=== PATIENT | female | born 1955 | race Caucasian/White ===

== ENCOUNTER 2020-04-24 19:02 | Emergency (ER) | payer OTHER ==
[~2020-04-24] VITALS: Ht 162.6 cm; Wt 56.7 kg
--- NOTE | 2020-04-24 19:20 | NUR ---
TO ER BED 10 BIBPA FROM [facility] C/O RLQ ABDOMINAL PAIN X3 DAYS. SENT BY PMD FOR RAJESH. PT AAOX4 NO ACUTE DISTRESS NOTED, RESP EVEN AND UNLABORED. PENDING ER MD MORALES.
--- NOTE | 2020-04-24 19:35 | NUR ---
URINE SAMPLE COLLECTED AND SENT TO LAB.
--- NOTE | 2020-04-24 19:40 | NUR ---
STARTED SL 18G TO RFA, BLOOD DRAWN AND SENT TO LAB.
[2020-04-24 19:54] LABS: BASOPHILS # (AUTO) 0.1 /CMM (0.0-0.2); BASOPHILS % (AUTO) 0.9 % (0.0-2.0); EOSINOPHILS % (AUTO) 1.4 % (0.0-6.0); HEMATOCRIT 48 % (33-45); HEMOGLOBIN 15.4 g/dL (11.5-14.8); LYMPHOCYTES # (AUTO) 2.4 /CMM (0.8-4.8); LYMPHOCYTES % (AUTO) 16.2 % (20.0-44.0); MEAN CORPUSCULAR HGB CONC 32 g/dl (31.0-36.0); MEAN CORPUSCULAR VOLUME 96 fL (82-100); MONOCYTES # (AUTO) 0.9 /CMM (0.1-1.30); NEUTROPHILS # (AUTO) 11.1 /CMM (1.8-8.9); NEUTROPHILS % (AUTO) 75.5 % (43.0-81.0); PLATELET COUNT (AUTO) 291 /CMM (150-450); RED BLOOD CELL COUNT(AUTO) 4.97 MIL/uL (4.0-5.2); WHITE BLOOD COUNT (AUTO) 14.6 K/uL (4.3-11.0)
[2020-04-24 20:17] LABS: CALCIUM, SERUM 8.9 mg/dL (8.5-10.1); CREATININE 1.1 mg/dL (0.6-1.3); POTASSIUM 4.5 mmol/L (3.5-5.1)
[2020-04-24] MEDS ORDERED: IOHEXOL-300 100 ML VIAL IV ONE (20:33)
--- NOTE | 2020-04-24 20:41 | NUR ---
PT TRANSPORTED TO RADIOLOGY FOR CT ABD/PELVIS WITH IV CONTRAST.
[2020-04-24 20:53] LABS: ALBUMIN 3.2 g/dL (3.4-5.0); BILIRUBIN,DIRECT 0.1 mg/dL (0.0-0.2); BILIRUBIN,TOTAL 0.3 mg/dL (0.2-1.0); TOTAL PROTEIN, SERUM 8.2 g/dL (6.4-8.2)
[2020-04-24] MEDS ORDERED: INSULIN REGULAR, HUMAN 100 UNIT/ML 10 ML VIAL SQ ONE (21:30)
[2020-04-24 21:34] LABS: BILIRUBIN,URINE NEGATIVE (NEGATIVE); COLOR,URINE YELLOW (YELLOW); LEUKOCYTE ESTERASE ,URINE SMALL (NEGATIVE); NITRITE, URINE POSITIVE (NEGATIVE); PROTEIN,URINE NEGATIVE (NEGATIVE); UGLUCOSE >=1000 mg/dL (NEGATIVE); UROBILINOGEN,URINE 0.2 EU/dL (0.2)
[2020-04-24] MEDS ORDERED: INSULIN REGULAR, HUMAN 100 UNIT/ML 10 ML VIAL ONE (21:42)
--- NOTE | 2020-04-24 21:44 | NUR ---
[facility] called for higher level of care. Not accepting emtala transfers.
--- NOTE | 2020-04-24 21:49 | NUR ---
ER MD TALKING TO PT REGARDING CT RESULT AND POSSIBLE TRANSFER FOR HLOC.
--- NOTE | 2020-04-24 21:56 | NUR ---
RAPID COVID AND COVID PCR SWAB COLLECTED AND SENT TO LAB.
[2020-04-24 21:58] LABS: BACTERIA,URINE 3+ /HPF (None Seen); WBC,URINE 81-100 /HPF (0-3)
--- NOTE | 2020-04-24 22:04 | NUR ---
[facility] Transfer [facility] called for higher level of care. Facesheet and clinicals faxed to transfer center.
--- NOTE | 2020-04-24 22:12 | NUR ---
[facility] called for higher level of care. Facesheet and clinicals faxed.
--- NOTE | 2020-04-24 22:21 | NUR ---
[facility] transfer center called for higher level of care. No capacity.
--- NOTE | 2020-04-24 22:52 | NUR ---
Call from lab. Rapid covid negative.
--- NOTE | 2020-04-24 22:54 | NUR ---
HEIDE MERAZ TALKING TO [facility] REGARDING PT.
[2020-04-24] MEDS ORDERED: IV NS 0.9% 1,000 ML IV ONE (23:00)
--- NOTE | 2020-04-24 23:15 | NUR ---
PER REMEDIOS AT [facility] TRANSFER [facility] PT IS DECLINED FOR HLOC DUE TO [facility] IS AT CAPACITY.
[2020-04-24] MEDS ORDERED: CIPROFLOXACIN IV RTU 200 ML IV ONE (23:20)
[2020-04-24] MEDS: CIPROFLOXACIN IV RTU 400 MG in PREMIX 1 EA IV SCH (23:31)
--- NOTE | 2020-04-25 01:29 | NUR ---
PT RESTING QUIETLY, NO ACUTE DISTRESS NOTED, RESP EVEN AND UNLABORE. NO PAIN OR DISCOMFORT NOTED AT THIS TIME. CALL LIGHT WITHIN REACH. WILL CONTINUE TO MONITOR PT CLOSELY.
--- NOTE | 2020-04-25 02:34 | NUR ---
DIAPER CHANGED PER PT REQUEST. KEPT COMFORTABLE. DEENIS PAIN OR DISCOMFORT AT THIS TIME. CALL LIGHT WITHIN REACH. WILL CONTINUE TO MONITOR.
--- NOTE | 2020-04-25 07:15 | NUR ---
REPORT GIVEN TO AM SHIFT DORA GU.
--- NOTE | 2020-04-25 07:36 | NUR ---
PATIENT IN BED ASLEEP, EASILY AROUSABLE BY VOICE. HOOKED TO MONITOR. VSS. WILL CONTINUE TO MONITOR ACCORDINGLY
--- NOTE | 2020-04-25 07:58 | NUR ---
SPOKE TO GHISLAINE FROM [facility]. WILL FAX OVER ALL CLINICALS TO [facility] THAT ACCEPT TRANSFERS: [facility], PT, [facility] , [facility], [facility], [facility].
--- NOTE | 2020-04-25 09:00 | NUR ---
RECIEVED A CALL BACK FROM GHISLAINE AT [facility]. ADVISED THAT THEY ARE STILL LOOKING FOR A VASCULAR SURGEON THAT WILL ACCEPT THE CASE BUT NO REPONSE YET. ADVISED TO CALL BACK [facility] AND TRY TO SPEAK WITH ORIGINAL VASCULAR SURGEON TO PERFORM SURGERY. WILL CALL BACK WITH ANY UPDATES.
--- NOTE | 2020-04-25 10:21 | NUR ---
Spoke to Dr. Martinez in regards with CT abd/pelvis with contrast result ,occluded right common iliac artery and external iliac artery, and per MD to contact Dr. Monson (vascular surgeon) if he will be able to accomodate the patient at [facility].
--- NOTE | 2020-04-25 10:35 | NUR ---
Kendall admit nurse from [facility] okay to trasnfer patient to whoever hospital willing to take the patient.
--- NOTE | 2020-04-25 10:40 | NUR ---
SPOKE TO DR. CARUSO FOR TRANSFER. AT THE MOMENT NOT ABLE TO ACCEPT PATIENT DUE TO BEING A COMPLICATED CASE. ADVISED TO CONTACT ORIGINAL VASCULAR SURGEON TO PERFORM SURGERY.
--- NOTE | 2020-04-25 10:45 | NUR ---
PATIENT C/O RLQ PAIN. MADE ER AWARE
[2020-04-25] MEDS ORDERED: HYDROMORPHONE 1 MG/1 ML DISP.SYRIN ONE (10:56)
[2020-04-25] MEDS ORDERED: HYDROMORPHONE 1 MG/1 ML DISP.SYRIN IV ONE (11:00)
--- NOTE | 2020-04-25 11:09 | NUR ---
SPOKE TO ZENON FROM [facility] TO SEE BED STATUS AND PRESENT CASE AGAIN. WILL REVIEW CT SCAN AND WILL GIVE US A CALL BACK WITH UPDATES.
[2020-04-25] MEDS ORDERED: CIPROFLOXACIN IV RTU 200 ML IV ONE (11:57)
[2020-04-25] MEDS: CIPROFLOXACIN IV RTU 400 MG in PREMIX 1 EA IV SCH ×2 (11:59→23:00)
--- NOTE | 2020-04-25 12:00 | NUR ---
CALLED AND SPOKE WITH HERLINDA AT [facility]. ONLY AVAILIBILITY FOR BEDS TO TAKE PATIENT ARE IN [facility], SPOKE WITH PATIENT ABOUT OPPORTUNITY AND PATIENT REFUSED.
--- NOTE | 2020-04-25 12:05 | NUR ---
SPOKE TO SERJIO FROM [facility], AT THIS TIME THEY ARE AT CAPACITY AND UNABLE TO ACCEPT PATIENT.
--- NOTE | 2020-04-25 12:16 | NUR ---
LUNCH TRAY PROVIDED. PATIENT REFUSED. PLACED FOOD AT BEDSIDE
--- NOTE | 2020-04-25 13:12 | NUR ---
SPOKE TO SERJIO FROM [facility], NO BEDS DUE TO CAPACITY.
--- NOTE | 2020-04-25 13:31 | NUR ---
SPOKE TO WILLIAM AT [facility] FOR HIGHER LEVEL. FAXED FACESHEET AND CT SCAN.
[2020-04-25] MEDS ORDERED: ALBU2.5V38 INH (14:05)
[2020-04-25] MEDS ORDERED: ASCO-352 PO (14:05)
[2020-04-25] MEDS ORDERED: PREG50CA PO (14:05)
[2020-04-25] MEDS ORDERED: ASPI-1169 PO (14:05)
[2020-04-25] MEDS ORDERED: NA P133E RC (14:05)
[2020-04-25] MEDS ORDERED: ATOR40TA PO (14:05)
[2020-04-25] MEDS ORDERED: CRAN425C6 PO (14:05)
[2020-04-25] MEDS ORDERED: BISA5TAB10 PO (14:05)
[2020-04-25] MEDS ORDERED: CRAN3875 PO (14:05)
[2020-04-25] MEDS ORDERED: INSU100I4 SQ (14:05)
--- NOTE | 2020-04-25 14:08 | NUR ---
SPOKE TO LAUREN FROM [facility]. CALLING FOR MORE INFOMATION OF PATIENT AND WILL PASS OVER INFORMATION TO VASCULAR SURGEON.
--- NOTE | 2020-04-25 15:00 | NUR ---
CALLED [facility] FOR HIGHER LEVEL OF CARE TRANSFER. SPOKE WITH ERIK AND NO BEDS AT THIS TIME.
--- NOTE | 2020-04-25 15:12 | NUR ---
PATIENT IN BED AWAKE, HOOKED TO MONITOR. VSS. WILL CONTINUE TO MONITOR ACCORDINGLY
--- NOTE | 2020-04-25 15:25 | NUR ---
FOLLOWED UP WITH [facility] AND SPOKE TO [place]. THE VASCULAR SURGEON IS CURRENTLY IN A CASE WILL CALL BACK AFTER.
--- NOTE | 2020-04-25 16:00 | NUR ---
GHISLAINE FROM [facility] CALLED. AT THIS TIME NO [facility] IS ABLE TO ACOMODATE THE PATIENT. GHISLAINE WILL CLOSE THE CASE.
--- NOTE | 2020-04-25 17:06 | NUR ---
CALLED [facility]. SPOKE TO ALF AND THEY ARE AT CAPACITY WITH BEDS.
--- NOTE | 2020-04-25 17:12 | NUR ---
CALLED [facility]. SPOKE WITH BRITTA AND WE NEED AN ACCEPTING DOCTOR BEFORE TRANSFER. UNABLE TO ACOMODATE AT THIS TIME.
--- NOTE | 2020-04-25 17:19 | NUR ---
[facility] SPOKE TO ZOIE. ONLY ACCEPTING CAPITATED PATIENTS AND NON COVID.
--- NOTE | 2020-04-25 17:25 | NUR ---
CALLED [facility] AND SPOKE WITH CHATA. AT THIS TIME THEY ARE SATURATED AND CANNOT ACCEPT NEW PATIENTS.
--- NOTE | 2020-04-25 17:33 | NUR ---
CALLED [facility] FOR HIGHER LEVEL OF TRANSFER. SPOKE TO BRANDYN AND NURSING SUP IS NOT ANSWERING. WILL CALL BACK ONCE NURSING SUP IS AVAILABLE.
--- NOTE | 2020-04-25 17:38 | NUR ---
SPOKE TO HEIDI FROM [facility]. AT THIS TIME THEY HAVE NO BEDS TO ACCOMODATE.
--- NOTE | 2020-04-25 17:42 | NUR ---
DINNER TRAY PROVIDED. PATIENT REFUSED TO EAT, PALCED FOOD AT BEDSIDE
--- NOTE | 2020-04-25 17:56 | NUR ---
SPOKE TO EVELINE FROM [facility]. WILL TALK WITH THEIR VASULAR SURGEON AND CALL US BACK.
--- NOTE | 2020-04-25 18:02 | NUR ---
SPOKE WITH MICHAEL FROM [facility]. NO BEDS AVAILABLE AT THIS TIME.
--- NOTE | 2020-04-25 18:07 | NUR ---
RECIEVED A CALL FROM HOMER FROM [facility]. VASCULAR SURGEON NOT WILLING TO TAKE THE CASE.
--- NOTE | 2020-04-25 18:20 | NUR ---
NOTED W MEDIUM SOLID BOWEL MOVEMENT. CLEANED PATIENT, CHANGED TO [facility]. KEPT WARM SAFE AND COMFORTABLE.
--- NOTE | 2020-04-25 20:25 | NUR ---
HEIDE MERAZ TALKING TO VASCULAR SURGEON RESIDENT FROM [facility] FROM REGARDING PT. WILL CALL BACK AFTER TALKING TO HIS ATTENDING PER DR. LOCO
--- NOTE | 2020-04-25 22:14 | NUR ---
Dr Martinez paged per Dr Jeffers
[2020-04-25] MEDS ORDERED: CEFTRIAXONE 1GM BAG (ER ONLY) 50 ML IV ONE (22:19)
--- NOTE | 2020-04-25 22:23 | NUR ---
PER CLAU FROM [facility] ETA IS 30 MINS FOR TRANSPORT BACK TO SNF.
[2020-04-25] MEDS ORDERED: CEFTRIAXONE 1 G VIAL IM ONE (22:30)
--- NOTE | 2020-04-25 22:33 | NUR ---
HEIDE MERAZ SPOKE TO DR. MONTANO REGARDING PT.
--- NOTE | 2020-04-25 22:43 | NUR ---
[facility] REGARD[facility] PT DISCHARGE. AWAITING TRANSPORT.
[2020-04-25] MEDS ORDERED: SULFAMETH/TRIMETH 800/160 MG 1 UDTAB TABLET ONE (22:49)
--- NOTE | 2020-04-25 22:56 | NUR ---
TRANSPORT AT BEDSIDE REPORT GIVEN TO EMT TRANSPORTT.
--- NOTE | 2020-04-25 22:56 | NUR ---
IV removed. Catheter intact and site benign. Pressure and 4x4 applied to site. No bleeding noted.
[2020-04-25] MEDS ORDERED: INSULIN REGULAR, HUMAN 100 UNIT/ML 10 ML VIAL SQ ONE (23:00)
[2020-04-25] MEDS ORDERED: SULFAMETH/TRIMETH 800/160 MG 1 UDTAB TABLET PO ONE (23:00)
[2020-04-25 23:08] VITALS: BP 102/62
== END 2020-04-25 23:09 ==
LOC: ER 19:05
DX: I72.4 Aneurysm of artery of lower extremity (principal); N39.0 Urinary tract infection, site not specified; J43.2 Centrilobular emphysema; R00.0 Tachycardia, unspecified; E78.5 Hyperlipidemia, unspecified; E11.51 Type 2 diabetes mellitus with diabetic peripheral angiopathy without gangrene; E11.65 Type 2 diabetes mellitus with hyperglycemia; Z88.0 Allergy status to penicillin; Z91.048 Other nonmedicinal substance allergy status; Z89.431 Acquired absence of right foot; T82.898A Other specified complication of vascular prosthetic devices, implants and grafts, initial encounter; Z20.822 Contact with and (suspected) exposure to COVID-19
CPT/HCPCS: 36415; 71045; 74177; 80048; 80076; 81001; 82962 ×2; 85025; 85730; 87426; 93005; 96365; 96367; 96372 ×2; 96375; 99291; A4216 ×2; C9803; J0696; J0744 ×3; J1170; J1815; J7030; Q9967; U0003

== ENCOUNTER 2020-10-07 20:20 | Emergency (ER) | payer OTHER ==
[~2020-10-07] VITALS: Ht 162.6 cm; Wt 56.7 kg
[~2020-10-07 20:20] MED LIST: ALBU2.5V38 INH; ASCO-352 PO; ASPI-1169 PO; ATOR40TA PO; BISA5TAB10 PO; CRAN3875 PO; CRAN425C6 PO; INSU100I4 SQ; NA P133E RC; PREG50CA PO
--- NOTE | 2020-10-07 20:25 | NUR ---
PT BIBPA C/O RT LOWER ABD SURGICAL INCISION BLEEDING. PT AAOX4 BREATHING EVENLY AND UNLABORED. UPON ASSESSMENT, THE SITE IS NOT BLEEDING. MD AT BEDSIDE FOR EVAL. PT ATTACHED TO MONITOR AND POX. PT GIVEN BLANKET AND CALLLIGHT WITHIN REACH
[2020-10-07] MEDS ORDERED: IV NS 0.9% 1,000 ML BAG IV ONE (21:00)
[2020-10-07] MEDS ORDERED: HYDROMORPHONE INJ 2 MG/ML DISP.SYRIN IV ONE (21:00)
[2020-10-07] MEDS ORDERED: ONDANSETRON HCL/PF 4 MG/2 ML VIAL IVP ONE (21:00)
[2020-10-07] MEDS ORDERED: ONDANSETRON HCL/PF 4 MG/2 ML VIAL ONE (21:03)
[2020-10-07] MEDS ORDERED: HYDROMORPHONE 1 MG/1 ML DISP.SYRIN ONE (21:04)
[2020-10-07 21:08] LABS: BASOPHILS # (AUTO) 0.1 K/uL (0.0-0.2); BASOPHILS % (AUTO) 0.8 % (0.0-2.0); EOSINOPHILS % (AUTO) 0.6 % (0.0-6.0); HEMATOCRIT 37 % (33-45); HEMOGLOBIN 12.1 g/dL (11.5-14.8); LYMPHOCYTES # (AUTO) 1.2 K/uL (0.8-4.8); LYMPHOCYTES % (AUTO) 7.3 % (20.0-44.0); MEAN CORPUSCULAR HGB CONC 33 g/dl (31.0-36.0); MEAN CORPUSCULAR VOLUME 93 fL (82-100); MONOCYTES # (AUTO) 1.3 K/uL (0.1-1.30); MONOCYTES % (AUTO) 7.7 % (2.0-12.0); NEUTROPHILS # (AUTO) 14.1 K/uL (1.8-8.9); NEUTROPHILS % (AUTO) 83.6 % (43.0-81.0); PLATELET COUNT (AUTO) 501 K/uL (150-450); RED BLOOD CELL COUNT(AUTO) 4.02 MIL/uL (4.0-5.2); WHITE BLOOD COUNT (AUTO) 16.9 K/uL (4.3-11.0)
[2020-10-07 21:14] LABS: CALCIUM, SERUM 8.8 mg/dL (8.5-10.1); CARBON DIOXIDE 28 mmol/L (21-32); CHLORIDE 97 mmol/L (98-107); POTASSIUM 4.7 mmol/L (3.5-5.1); SODIUM SERUM 132 mmol/L (136-145); UREA NITROGEN, BLOOD 21 mg/dL (7-18)
[2020-10-07 21:20] LABS: ALANINE AMINOTRANSFERASE 21 U/L (12-78); ALBUMIN 2.7 g/dL (3.4-5.0); ALKALINE PHOSPHATASE 130 U/L (46-116); ASPARTATE AMINOTRANSFERASE 11 U/L (15-37); BILIRUBIN,DIRECT 0.1 mg/dL (0.0-0.2); BILIRUBIN,TOTAL 0.2 mg/dL (0.2-1.0); GLUCOSE 376 mg/dL (74-106); LIPASE 110 U/L (73-393); TOTAL PROTEIN, SERUM 7.6 g/dL (6.4-8.2)
--- NOTE | 2020-10-07 21:42 | NUR ---
URINE COLLECTED AND SENT TO THE LAB.
[2020-10-07 22:12] LABS: BILIRUBIN,URINE Negative (NEGATIVE); COLOR,URINE YELLOW (YELLOW); LEUKOCYTE ESTERASE ,URINE Negative (NEGATIVE); NITRITE, URINE Positive (NEGATIVE); PH,URINE 5.5 (5.0-8.0); PROTEIN,URINE 100 mg/dl (NEGATIVE); UGLUCOSE 500 MG/DL mg/dL (NEGATIVE); UROBILINOGEN,URINE 0.2 EU/dL (0.2)
[2020-10-07 22:24] LABS: BACTERIA,URINE 2+ /HPF (None Seen); SQUAMOUS EPITHELIAL CELL,UR Few /HPF (None Seen)
[2020-10-07] MEDS ORDERED: NITR100C6 PO (22:26)
--- NOTE | 2020-10-07 22:40 | NUR ---
EMT AT BEDSIDE FOR WOUND CARE
--- NOTE | 2020-10-07 22:44 | NUR ---
CALLED [facility] FOR BLS TO [facility], ETA [phone] HOURS
--- NOTE | 2020-10-07 22:52 | NUR ---
CALLED [facility] AND GAVE REPORT TO DORA BOOTH FOR GRETA
--- NOTE | 2020-10-08 00:20 | NUR ---
GAVE REPORT TO EMS TRANSPORTATION
[2020-10-08 00:31] VITALS: BP 140/67
== END 2020-10-08 00:20 ==
LOC: ER 20:22
DX: E86.0 Dehydration (principal); L76.22 Postprocedural hemorrhage of skin and subcutaneous tissue following other procedure; N39.0 Urinary tract infection, site not specified; I12.9 Hypertensive chronic kidney disease with stage 1 through stage 4 chronic kidney disease, or unspecified chronic kidney disease; E11.22 Type 2 diabetes mellitus with diabetic chronic kidney disease; N18.9 Chronic kidney disease, unspecified; E78.5 Hyperlipidemia, unspecified; I25.2 Old myocardial infarction; J44.9 Chronic obstructive pulmonary disease, unspecified; E03.9 Hypothyroidism, unspecified; Z89.431 Acquired absence of right foot; Z88.0 Allergy status to penicillin; Z88.6 Allergy status to analgesic agent; Z91.048 Other nonmedicinal substance allergy status; Z79.899 Other long term (current) drug therapy; Z79.82 Long term (current) use of aspirin
CPT/HCPCS: 36415; 80048; 80076; 81001; 83690; 84484; 85025; 85730; 87086; 96361; 96374; 96375; 99284; J1170; J2405; J7030